=== PATIENT | female | born 1990 | race Two or more races ===

== ENCOUNTER 2020-08-14 09:03 | Emergency (ER) | payer OTHER ==
[~2020-08-14] VITALS: Ht 167.6 cm; Wt 77.1 kg
[~2020-08-14 09:03] MED LIST: ORTHO TRI-7 DAYSX1 PO
== END 2020-08-14 14:37 | disposition home or self-care (01) ==
LOC: ER 09:03
DX: R10.2 Pelvic and perineal pain (principal)

== ENCOUNTER 2021-09-26 21:53 | Emergency (ER) | payer OTHER ==
[~2021-09-26] VITALS: Ht 167.6 cm; Wt 77.1 kg
[2021-09-26] MEDS ORDERED: TYLENOL ARTHRI650 MG PO (23:37)
[2021-09-26] MEDS ORDERED: ORPHENADRINE C100 MG PO (23:37)
== END 2021-09-26 23:49 | disposition home or self-care (01) ==
LOC: ER 21:53
DX: M54.31 Sciatica, right side (principal); Z88.0 Allergy status to penicillin; Z88.6 Allergy status to analgesic agent